=== PATIENT | female | born 1955 | race Caucasian/White ===

== ENCOUNTER 2022-11-28 12:39 | Inpatient (IN) | payer MEDICARE, SELFPAY ==
[2022-11-28] VITALS (13 sets, daily range): BP systolic 99–131; BP diastolic 51–74; PULSE 74–90; RESP 14–18; TEMP 36.5–37; O2SAT 97–100; BMI 20.5; BMI 19.3
--- NOTE | 2022-11-28 13:05 | EKG12_ITS ---
Test Reason : SYNCOPE Blood Pressure : / mmHG Vent. Rate : 082 BPM Atrial Rate : 082 BPM P-R Int : 170 ms QRS Dur : 080 ms QT Int : 380 ms P-R-T Axes : 072 057 203 degrees QTc Int : 443 ms Normal sinus rhythm Possible Left atrial enlargement Left ventricular hypertrophy with repolarization abnormality ( Sokolow-Goodson ) Abnormal ECG Confirmed by GABRIELA HERNANDEZ, AYLIN ([id number]), art editor JOANIE NIELSEN ([id number]) on 12/02/2022 11:44:48 AM Referred By: RAFAEL Confirmed By:AYLIN OCHOA MD
--- NOTE | 2022-11-28 13:07 | EDS_ITS ---
HPI History of Present Illness Chief Complaint: Fall Narrative Narrative: 67-year-old female who denies significant past medical history, states she has not seen a primary care physician in quite some time, presents with what sounds like a syncopal episode for 5 to 10 seconds. She relates history that she had parked where she usually parked, but then went into the building for a meeting. She felt short of breath, and had a syncopal episode. It was reported by EMS that she was diaphoretic, but she denies any prodromal chest pain. She does state that when she exerts herself over the past few years, she becomes very short of breath, especially when she goes walking with her relatives. She thinks that they go too fast and she has of being very short of breath. She does not have a good exercise tolerance. She denies any leg swelling or any other symptoms. PFSH PFSH Medical History no medical history Home Medications NK 11/28/22 [History Last Taken Unknown] Allergy/AdvReac Type Severity Reaction Status Date / Time No Known Allergies Allergy Verified 11/28/22 12:45 Surgical History H/O hand surgery Hx of appendectomy Social History Smoking Status: Never smoker ROS ROS ED ROS Narrative Constitutional: No fever, no chills. HEENT: No sore throat. No neck pain. No loss of vision. No rhinorrhea. Cardiovascular: No chest pain. No palpitations. No pedal edema. Respiratory: No cough, positive shortness of breath. Abdominal: No abdominal pain. No nausea. No vomiting. Genitourinary: No dysuria. No hematuria. Musculoskeletal: No myalgias. No arthralgias. Neurologic: No headaches. No dizziness. No lightheadedness. Reported syncope. Skin: No rash. No change in color. Psychiatric: No depression. No anxiety. EXAM Physical Exam Narrative Exam Narrative: Afebrile. Vital signs noted. HEENT: Normocephalic. Atraumatic. PERRL, EOMI. Neck soft and supple. No point tenderness or step off. Cardiovascular: Regular rate and rhythm. Positive holosystolic murmur. Rubs, or gallops appreciated. Respiratory: No tachypnea. Lungs clear to auscultation bilaterally. Gastrointestinal: Abdomen soft, nontender, with normoactive bowel sounds. No rebound or guarding. Neurological: Awake. Alert. Nonfocal, nonlateralizing. Skin: No rash. Normal color. No pallor. Musculoskeletal: No pedal edema. Full range of motion extremities. Const Vital Signs: 11/28/22 12:41 11/28/22 12:47 11/28/22 12:48 Temperature 97.9 F Temperature Source Temporal Pulse Rate 87 84 Respiratory Rate 18 16 Respiratory Effort Normal Non-Labored Blood Pressure 99/51 L 108/57 L Blood Pressure Mean 67 74 Pulse Ox 100 99 99 Oxygen Delivery Method Room Air Room Air Room Air 11/28/22 13:16 11/28/22 13:27 11/28/22 13:56 Temperature Temperature Source Pulse Rate 79 83 Respiratory Rate 16 14 Respiratory Effort Blood Pressure 125/54 H 126/59 H Blood Pressure Mean 77 81 Pulse Ox 100 100 99 Oxygen Delivery Method Room Air Room Air Room Air MDM MDM MDM Narrative Medical decision making narrative: Comprehensive work-up was pursued. Based on her history and physical with her holosystolic murmur, I have high suspicion for critical aortic stenosis. EKG was obtained and interpreted by myself as normal sinus rhythm at 82 bpm without ectopy or acute ST changes. She does have mild ST elevation noted in leads V1 and V2 but she does have left ventricular hypertrophy by voltage. She does have mild ST depression in V3 through V6 and laterally. I will obtain a troponin and basic laboratory work including chest x-ray, however regardless of these results I do feel that she would require at least observation for echocardiogram as she was symptomatic with a syncopal episode today. I reviewed her laboratory work, she has a normal white count of 5.2, hemoglobin normal at 12.5, platelet count slightly thrombocytopenic at 137 which I think is nonspecific. There are no prior with which to compare. She has a glucose is appropriately elevated at 143 with a low anion gap of 4, I do not feel she is in a diabetic ketoacidosis. BUN elevated at 22 with normal creatinine of 0.85. She has normal renal function. Her blood pressure is currently 126/59 and improved. Of note, her troponin is elevated at 135. I do feel this is more reason for her to be admitted to the hospital. I discussed patient with Dr. Griffith who will admit her to the PCU. She was given 4 baby aspirin to take given her elevated troponin. He requested that I discussed the patient with Dr. Chadwick to let him know of the patient's admission. Disposition is admit in stable condition. History & Record Review Discussion w/independent historian: Patient Additional record(s) reviewed:: No prior records Lab Data Attestation: I reviewed the patient's lab results. Labs: Laboratory Results - last 24 hr 11/28/22 11/28/22 13:00 13:00 WBC 5.2 RBC 4.19 L Hgb 12.5 Hct 38.5 MCV 91.9 MCH 29.8 MCHC 32.5 RDW Std Deviation 42.7 RDW Coeff of Mik 12.8 Plt Count 137 L MPV 12.9 H Immature Gran % (Auto) 0.200 Neut % (Auto) 60.6 Lymph % (Auto) 26.2 [place] % (Auto) 10.5 H Eos % (Auto) 1.9 Baso % (Auto) 0.6 Absolute Neuts (auto) 3.2 Absolute Lymphs (auto) 1.37 Nucleated RBC % 0 Sodium 139 Potassium 3.7 Chloride 107 Carbon Dioxide 28.0 Anion Gap 4 L BUN 22 H Creatinine 0.85 Estim Creat Clear Calc 57.45 Est GFR (MDRD) Af Amer 86 Est GFR (MDRD) Non-Af 71 BUN/Creatinine Ratio 25.9 H Glucose 143 H Calcium 8.5 Troponin I High Sens 135 H* Radiography Diagnostic Testing: Clinical Impression(s) from Imaging Studies Chest X-Ray 11/28/22 13:30 IMPRESSION: Hyperinflation. The lungs are clear. Electronically Signed: True Rodríguez MD at 13:53 EDT , Discharge Plan Dx/Rx/DC Orders Clinical Impression: Syncope, Elevated troponin, Aortic stenosis, SOB (shortness of breath) Disposition Disposition: Acute Care [facility]
[2022-11-28 13:16] LABS: Absolute Lymphocyte Count 1.37 X10^3/uL (0.83-4.51); Absolute Neutrophil Count 3.2 X10^3/uL (2.0-7.7); Basophil# 0.03 X10^3/uL; Basophil% 0.6 % (0-1); Eosinophils% 1.9 % (0-5); Hematocrit 38.5 % (37-47); Hemoglobin 12.5 g/dL (12.0-15.0); Lymphocyte # 1.37 X10^3/ul (0.83-4.51); Lymphocyte % 26.2 % (19-41); Mean Corp Hgb Conc 32.5 g/dL (32-36); Mean Corpuscular Hgb 29.8 pg (27.0-32.0); Mean Corpuscular Volume 91.9 fL (81-99); Mean Platelet Vol. 12.9 fl (6.2-12.0); Monocyte# 0.55 X10^3/uL; Monocyte% 10.5 % (0-10); NRBC Flagged by Analyzer 0 % (0-5); Neutrophil # 3.17 X10^3/uL (2.7-7.7); Neutrophil % 60.6 % (47-70); Platelet Count 137 K/mm3 (150-450); RBC Distribution Width CV 12.8 % (11.6-14.6); RBC Distribution Width SD 42.7 fl (35.1-43.9); Red Blood Count 4.19 M/mm3 (4.2-5.4); White Blood Count 5.2 K/mm3 (4.4-11.0)
--- NOTE | 2022-11-28 13:30 | RAD_ITS ---
STUDY: X-RAY CHEST REASON FOR EXAM: Female, 67 years old. Chest pain TECHNIQUE: Single AP portable view of the chest. COMPARISON: None. FINDINGS: EKG electrodes are seen. Hyperinflation. The lungs are clear. There is no demonstrated pleural abnormality. Normal size heart. Normal mediastinum and galo. Normal visualized pulmonary arteries. Normal visualized aortic arch and descending thoracic aorta. Normal visualized thoracic spine. Normal visualized ribs, clavicles, and shoulders. There is no demonstrated abnormality of the visualized soft tissue structures of the upper abdomen. RAD/Chest 1 View (Portable) IMPRESSION: Hyperinflation. The lungs are clear. Electronically Signed: True Rodríguez MD at 13:53 EDT ,
[2022-11-28 13:37] LABS: Anion Gap 4 (5-15); BUN 22 mg/dL (7-18); BUN/Creat Ratio 25.9 RATIO (10-20); Calcium,Total 8.5 mg/dL (8.5-10.1); Chloride 107 mmol/L (98-107); Creatinine, Serum 0.85 mg/dL (0.55-1.02); EST Glomerular Filtration Rate 71 mL/min (>60); Est Glom Filt Rate - Afr Amer 86 mL/min (>60); Estimated Creatinine Clearance 57.45 ml/min; Glucose 143 mg/dL (74-106); Potassium 3.7 mmol/L (3.5-5.1); Sodium Level 139 mmol/L (136-145); Troponin-I HS (w/2H Reflex) 135 pg/mL (3.0-54.0)
[2022-11-28] MEDS: Aspirin 81 MG TAB.CHEW 324 MG PO (13:55)
[2022-11-28] MEDS: 0.9% Normal Saline 1,000 ML 999 ML IV (14:00)
--- NOTE | 2022-11-28 14:37 | CM.ED ---
Social Work Note REKHA Face to Face with patient for initial transition planning/care coordination assessment. SW introduced self and role at [facility]. Patient lying in bed, alert and oriented. Patient willing to participate in assessment and is able to answer all questions appropriately.? Care providers, pharmacy, and demographics verified. Patient wishes to discharge home, denies need for home health at this time.? Patient states she has no further needs or concerns at this time. CM/SW to follow for discharge planning needs that may arise. PCP: Patient reports she was assigned Mary Montoya as her PCP by Medicare but has never met with her. Patient explained she is very healthy and doesn't receive medical services often. Specialists: none reported Preferred Pharmacy: Patient reports she doesn't use one nor is familiar with any. Patient is open to using [facility] pharmacy for prescriptions to be filled prior to discharge, if needed. Insurance: [facility] Medicare Prescription Benefit:?Patient unsure but assumes she has prescription benefits, explaining she has never needed to use those benefits. Living Will/HPOA: Patient does not have completed AD but is interested in completing them, explaining she would want her twin sister, Imelda, as her primary agent and her brother, Max, secondary. Patient's phone is currently and patient reports she keeps phone numbers on her tablet which is in her car. SW provided patient with information on AD as well as Instructor Psychiatric Aide rack card to schedule an appointment to complete AD when able. LNOK: Patient's twin sister Imelda Gandhi and brother Max Crain. Patient does not know either phone numbers. Living Arrangements: Patient lives with her sister, Yessy, in a ranch style home that was willed to Yessy from their parents. Patient reports her sister Yessy is a slow learner so the patient assists her with DLS although she is independent with some tasks. Patient reports there are some steps into the house. Transportation: Patient drives herself and voices no concerns regarding transportation. DME/HHC: Patient reports no DME or HHC services as she has been independent and healthy for years. Disposition Plan: home, no needs unless care team has other recommendations. Karina INTERIANO, JACKY
--- NOTE | 2022-11-28 14:41 | HP.PCM.HOS_ITS ---
HPI - General General Date of Admission: 11/28/22 Date of Service: 11/28/22 Chief Complaint: Syncope passed out. HPI Narrative MADELYN SPENCE, is a 67 F who was brought to ED by EMS after she passed out probably about 5 to 10 seconds. She stated that while she was walking into the building ultraparking the car, suddenly she passed out and does not know anything afterwards. She was mild short of breath on walking. She denies any prodromal symptoms including chest pain pressure tightness but as per EMS he was diaphoretic. She does not know her history in detail and does not see any PCP and not on any medications. She further said she gets short of breath on walking probably about 1 block but not sure about climbing stairs. She does usual house chores without difficulty or shortness of breath. She denies any prior history of any medical problems including heart disease lung disease stroke or peripheral arterial disease. She denies any prior syncope. Social history: Denies history of smoking substance use or alcohol use. She lives with her sister and is single. Family history: Her brother has cardiac stents. Her father had a stroke. In ED, twelve-lead EKG shows sinus rhythm at 82 bpm with LVH with repolarization abnormality and LAE. QTc 443 ms. No prior EKG or labs to compare. EKG suggestive of uncontrolled hypertension but she states her pressure has been low in the past. She does not know the exact number probably around 90s at 100s. In ED, BP 99/51, went up 126/59 with IV fluid restriction but last 1 was sy stolic 88. Patient not feeling dizzy or lightheaded. First troponin elevated in edition consulted automation engineering technician. [facility] Medical History no medical history Home Medications NK 11/28/22 [History Last Taken Unknown] Allergy/AdvReac Type Severity Reaction Status Date / Time No Known Allergies Allergy Verified 11/28/22 12:45 Surgical History H/O hand surgery Hx of appendectomy Social History Smoking Status: Never smoker ROS ROS Narrative Constitutional: Denies fatigue or fever. No recent URI or flulike symptoms. HEENT: Reports systems reviewed and no addt'l complaints, except as documented Respiratory/Chest: Denies chest pain, shortness of breath at rest. CVS: Dyspnea on moderate to severe exertion. No prior chest pain/NE. Does not know about murmur. Gastrointestinal: Denies coffee ground emesis, hematemesis or vomiting Genitourinary: Denies burning urination or new urinary tract symptoms Musculoskeletal: Denies joint pain and limited range of motion Neurologic: Denies seizure-like activity. No prior stroke. skin: No ulcer. No rash Endocrinology: Reports systems reviewed and no addt'l complaints, except as documented Hematologic/Lymphatic: Reports systems reviewed and no addt'l complaints, except as documented Rest 14 ROS are negative except as mentioned in HPI Vital Signs Vital Signs Vital Signs: 11/28/22 12:41 11/28/22 12:47 11/28/22 12:48 Temperature 97.9 F Temperature Source Temporal Pulse Rate 87 84 Respiratory Rate 18 16 Respiratory Effort Normal Non-Labored Blood Pressure 99/51 L 108/57 L Blood Pressure Mean 67 74 Pulse Ox 100 99 99 Oxygen Delivery Method Room Air Room Air Room Air 11/28/22 13:16 11/28/22 13:27 11/28/22 13:56 Temperature Temperature Source Pulse Rate 79 83 Respiratory Rate 16 14 Respiratory Effort Blood Pressure 125/54 H 126/59 H Blood Pressure Mean 77 81 Pulse Ox 100 100 99 Oxygen Delivery Method Room Air Room Air Room Air 11/28/22 14:32 Temperature 97.9 F Temperature Source Temporal Pulse Rate 82 Respiratory Rate 18 Respiratory Effort Blood Pressure 131/68 H Blood Pressure Mean 89 Pulse Ox 97 Oxygen Delivery Method Room Air Weight Weight: 123 lb 3.814 oz Body Mass Index (BMI) 20.5 Physical Exam Narrative General: Alert, Oriented x3, Cooperative HEENT: Atraumatic, PERRLA, EOMI, Normocephalic Oral: Oral mucosa dry. No Gingival or Mucosal Lesions/ Ulcerations Neck: Supple, No JVD, Negative Carotid Bruits Lungs: Air entry diminished in bilateral lung bases. No crepitation/rhonchi/wheezing. No dyspnea at rest. No hypoxia Cardiovascular: Regular rate, Regular Rhythm, Normal S1, Normal S2, grade 5/6 ejection systolic murmur over right second ICS with radiation to carotids and whole precordium and back. Abdomen: Bowel Sounds Present, Soft, Non Tender, Non-Distended : No renal angle tenderness. No suprapubic tenderness. Extremities: No edema, Capillary Refill Less than 3 Seconds Skin: No rashes, No breakdown Musculoskeletal: No Tenderness to Palpation of Joints or Extremities. Muscle strength 5/5 at major joints. ROM intact. Neurological: Cranial nerves II-XII grossly intact, DTR 2+/4 and Symmetrical, Neuro grossly intact Psych/Mental Status: Normal Affect, Appropriate. Results Lab / Micro Data Result Diagrams: 11/28/22 13:00 11/28/22 13:00 Labs: Laboratory Results - last 24 hr 11/28/22 13:00: WBC 5.2, RBC 4.19 L, Hgb 12.5, Hct 38.5, MCV 91.9, MCH 29.8, MCHC 32.5, RDW Std Deviation 42.7, RDW Coeff of Mik 12.8, Plt Count 137 L, MPV 12.9 H, Immature Gran % (Auto) 0.200, Neut % (Auto) 60.6, Lymph % (Auto) 26.2, [place] % (Auto) 10.5 H, Eos % (Auto) 1.9, Baso % (Auto) 0.6, Absolute Neuts (auto) 3.2, Absolute Lymphs (auto) 1.37, Nucleated RBC % 0 11/28/22 13:00: Sodium 139, Potassium 3.7, Chloride 107, Carbon Dioxide 28.0, Anion Gap 4 L, BUN 22 H, Creatinine 0.85, Estim Creat Clear Calc 57.45, Est GFR (MDRD) Af Amer 86, Est GFR (MDRD) Non-Af 71, BUN/Creatinine Ratio 25.9 H, Glucose 143 H, Calcium 8.5, Troponin I High Sens 135 H* Radiology Impression Chest X-Ray 11/28/22 13:30 IMPRESSION: Hyperinflation. The lungs are clear. Electronically Signed: True Rodríguez MD at 13:53 EDT , Assessment & Plan Assessment/Plan (1) Syncope: (2) Aortic stenosis: PLAN: Plan This is 67-year-old female is being admitted for evaluation of syncope and aortic stenosis. 1. Syncope most likely cardiac in etiology due to severe aortic stenosis: Patient is being admitted in PCU. Orthostatic blood pressure when she is fully resuscitation and BP is more than 110 mmHg. 2D echo is ordered. History is not suggestive of seizure or convulsions and syncope was brief. 2. Chronic dyspnea on exertion, troponin elevation and severe aortic stenosis: Patient does not know about her cardiac murmur. First troponin is 135. Twelve- lead EKG slight ST elevation in V1 V2 and T wave inversions in lateral leads, most likely due to LVH with repolarization abnormality. Serial troponin and EKG ordered. Network Design Architect is consulted. Further management guided by troponin elevation, and echo finding. Her blood pressure is low therefore I would not start beta-cruz or MILA inhibitor but monitor closely. TSH and fasting lipid profile for tomorrow a.m. 3. Chronic low blood pressure with EKG changes of LVH with repolarization abnormality: This does not go usually together but patient might have uncontrolled hypertension in the past which recently might have gotten low due to severe aortic stenosis or heart failure. BNP is ordered. Patient does not have leg swelling or findings of pulmonary edema. Chest x-ray initially reviewed shows hyperinflation but lungs clear. IV fluid normal saline 1 L bolus and then Ringer lactate 100 mill per hour ordered. Patient does not go to PCU and therefore no prior record, labs or clinical evaluation. 4. Mild hyperglycemia and mild thrombocytopenia: Patient glucose is 143. A1c ordered for tomorrow AM. Platelet count 837,000. Monitor labs. Living will/advanced directive/end of life care: Patient does not have living will or advanced directive. After discussion of benefits/risks procedures involved with full code, DNR CC arrest and DNR CC, the patient opted for DNRCC arrest with no intubation Patient doesn't want artificial life support including intubation, tube feed, ventilator and/chest compression, central venous catheter, vasopressor and DC shock if needed Total time spent in [id number] encounter in discussion of advanced directive 17 minutes. Laboratory Results 11/28/22 13:00: WBC 5.2, RBC 4.19 L, Hgb 12.5, Hct 38.5, MCV 91.9, MCH 29.8, MCHC 32.5, RDW Std Deviation 42.7, RDW Coeff of Mik 12.8, Plt Count 137 L, MPV 12.9 H, Immature Gran % (Auto) 0.200, Neut % (Auto) 60.6, Lymph % (Auto) 26.2, [place] % (Auto) 10.5 H, Eos % (Auto) 1.9, Baso % (Auto) 0.6, Absolute Neuts (auto) 3.2, Absolute Lymphs (auto) 1.37, Nucleated RBC % 0 11/28/22 13:00: Sodium 139, Potassium 3.7, Chloride 107, Carbon Dioxide 28.0, Anion Gap 4 L, BUN 22 H, Creatinine 0.85, Estim Creat Clear Calc 57.45, Est GFR (MDRD) Af Amer 86, Est GFR (MDRD) Non-Af 71, BUN/Creatinine Ratio 25.9 H, Gl ucose 143 H, Calcium 8.5, Troponin I High Sens 135 H* Clinical Impression(s) from Imaging Studies Chest X-Ray 11/28/22 13:30 IMPRESSION: Hyperinflation. The lungs are clear. Electronically Signed: True Rodríguez MD at 13:53 EDT , Charges/Coding Visit Charges Inpatient E&M: 09633 Init Hosp L3 Procedures Hospitalists Procedures: 09687 Advncd Care Plan 30 Min
[2022-11-28 15:10] LABS: BNP,B-Type NATRIURETIC PEPTIDE 379.6 pg/mL (0-100)
[2022-11-28 15:11] LABS: Reflex Troponin-HS? (from REC) Y
[2022-11-28 15:53] LABS: Troponin-I HS 148 pg/mL (3.0-54.0)
--- NOTE | 2022-11-28 16:45 | ECHOCS_ITS ---
Reason For Study: Syncope Procedure This was a 2D Doppler, Color Flow transthoracic echocardiogram. The study was technically difficult. Contrast injection was performed. Exam performed portable in patient room. Left Ventricle Normal left ventricle. The estimated ejection fraction is 55-60 %. Right Ventricle Normal right ventricle. Normal systolic function. Atria Normal left atrium. Normal right atrium. Bubble contrast study is negative for PFO/ASD. Mitral Valve The mitral valve is structurally normal. No prolapse or stenosis seen. Mild (1+) mitral valve insufficiency. Tricuspid Valve Normal tricuspid valve. Aortic Valve Severe diffuse aortic valve calcification. Critical aortic stenosis. Peak aortic valve gradient 167.6 mmhg mmHg. Mean aortic valve gradient 97.9 mmhg mmHg. Calculated aortic valve area (continuity equation) is 0.38 cm2 cm2. Pulmonic Valve The pulmonic valve is not well visualized. Great Vessels Calcified aortic root. Severely calcified aortic root. Pericardium/Pleural No pericardial effusion. Medication Diluted definity 2ml given slow IV push to enhance endocardial definition. Performed a rapid injection of agitated mix of 9 cc saline and 1cc air to assess for atrial septal defect. MMode/2D Measurements & Calculations LVIDd: 4.3 cm IVSd: 1.4 cm LVOT diam: 1.9 cm LVIDs: 3.0 cm LVPWd: 1.1 cm RVDd: 3.3 cm FS: 30.2 % LVOT area: 3.0 cm2 Ao root diam: 3.1 cm LAV(MOD-bp): 57.7 ml LA A4 area: 20.3 cm2 LA dimension: 3.4 cm LAV(MOD-bp) Indexed: 36.7 ml/m2 LAV(MOD-sp2): 51.3 ml LAV(MOD-sp4): 55.3 ml RA A4 area: 13.5 cm2 Time Measurements MV dec time: 0.15 sec Doppler Measurements & Calculations MV E max ben: 129.5 cm/sec Lat Peak E' Ben: 5.9 cm/sec Med Peak E' Ben: 5.5 cm/sec MV A max ben: 97.0 cm/sec E/E' lat: 22.0 E/E' med: 23.6 MV E/A: 1.3 MV V2 max: 159.2 cm/sec MV P1/2t max ben: 159.2 cm/sec Ao V2 max: 647.1 cm/sec MV max P.1 mmHg MV P1/2t: 56.7 msec Ao max P.6 mmHg MV V2 mean: 69.5 cm/sec MV dec slope: 821.9 cm/sec2 Ao V2 mean: 464.3 cm/sec MV mean P.5 mmHg Ao mean P.9 mmHg MV V2 VTI: 37.6 cm MVA(P1/2t): 3.9 cm2 Ao V2 VTI: 173.1 cm MVA(VTI): 1.9 cm2 AV (velocity ratio): 0.14 FARHAT(I,D): 0.41 cm2 FARHAT(V,D): 0.38 cm2 LV V1 max: 81.9 cm/sec SV(LVOT): 71.0 ml PA V2 max: 70.7 cm/sec LV V1 max P.7 mmHg LV V1 mean P.6 mmHg LV V1 mean: 59.1 cm/sec LV V1 VTI: 23.9 cm TR max ben: 314.4 cm/sec TR max P.5 mmHg ECHO/Echo Complete W/ Contrast Interpretation Summary The estimated ejection fraction is 55-60 %. Peak aortic valve gradient 167.6 mmhg mmHg. Mean aortic valve gradient 97.9 mmhg mmHg. Calculated aortic valve area (continuity equation) is 0.38 cm2 cm2. Critical Calcific AV stenosis No prior study to compare contrast echo and Buble study used Ordering Physician: Chencho Griffith Performed By: Bolivar Ernst RCS
[2022-11-28] MEDS: Enoxaparin 40 MG/0.4 ML Syringe SC (17:42)
[2022-11-28] MEDS: Lactated Ringers 1,000 ML 100 ML IV (17:43)
--- NOTE | 2022-11-28 18:56 | EKG12_ITS ---
Test Reason : AM EKG Blood Pressure : / mmHG Vent. Rate : 070 BPM Atrial Rate : 070 BPM P-R Int : 174 ms QRS Dur : 082 ms QT Int : 394 ms P-R-T Axes : 073 058 213 degrees QTc Int : 425 ms Normal sinus rhythm Left ventricular hypertrophy with repolarization abnormality ( Sokolow-Goodson ) Abnormal ECG When compared with ECG of 28-NOV-2022 19:07, MANUAL COMPARISON REQUIRED, DATA IS UNCONFIRMED Confirmed by GABRIELA HERNANDEZ, AYLIN ([id number]), acquisition editor JOANIE NIELSEN ([id number]) on 12/03/2022 10:34:13 AM Referred By: Confirmed By:AYLIN OCHOA MD
--- NOTE | 2022-11-28 19:17 | CON.PCM.CA_ITS ---
Assessment & Plan Assessment/Plan (1) SOB (shortness of breath): (2) Thrombocytopenia: (3) Elevated troponin: (4) Syncope: PLAN: Plan 67-year-old patient admitted through the ER She has episode of syncope passed out while at work Denied symptoms of chest pain no prior episodes of syncope She had no associated symptoms shortness of breath. 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 Repeat EKG 3. Will assess further with cardiac catheterization tomorrow right radial artery approach as she has elevated cardiac biomarkers with syncopal episode to assess for CAD. HPI Consult Data Date of Consult: 11/28/22 HPI Narrative Reason for Consultation: Syncope with heart murmur HPI Narrative: MADELYN SPENCE, is a 67 F who presents [facility] Medical History Migraines Medical History no medical history Home Medications NK 11/28/22 [History Last Taken Unknown] Allergy/AdvReac Type Severity Reaction Status Date / Time No Known Allergies Allergy Verified 11/28/22 12:45 Surgical History H/O hand surgery Hx of appendectomy Social History Smoking Status: Never smoker ROS ROS Narrative 14 point review of system is unremarkable apart from current presentation of syncope Physical Exam Cardio Cardio Narrative: Review of cardiac rhythm is normal sinus/cardiac telemetry Cardiac exam S1-S2 regular Systolic murmur heard in the aortic valve area in addition to mid diastolic murmur Chest exam clear to auscultation bilateral Examination lower extremity no clubbing no cyanosis no lower extremity edema Risk Stratification Risk Stratification Applicable: Yes Age >/= 65: Yes >/= 3 CAD Risk Factors (HTN, HLD, DM, family hx of CAD, or current smoker): No Aspirin Use in the Past 7 Days: No Severe Angina (>/= episodes in 24 hours): No EKG ST Changes >/= 0.5mm: No Positive Cardiac Marker: Yes EVAN Risk Stratification Score: 2 EVAN % Risk: 8% Risk Objective Data Vital Signs: Vital Signs Temp Pulse Resp BP Pulse Ox O2 Del Method 97.7 F L 79 18 116/62 99 Room Air 11/28/22 16:00 11/28/22 17:49 11/28/22 16:00 11/28/22 17:49 11/28/22 18:21 11/28/22 18:21 Oxygen Delivery Method Room Air Weight: 116 lb 5 oz Body Mass Index (BMI) 19.3 Intake & Output: Intake and Output for Last 24 Hours 11/26/22 11/27/22 11/28/22 23:59 23:59 23:59 Intake Total 1240 / 1240 Balance 1240 / 1240 Lab / Micro Data Result Diagrams: 11/28/22 13:00 11/28/22 13:00 Labs: Laboratory Results - last 24 hr 11/28/22 13:00: WBC 5.2, RBC 4.19 L, Hgb 12.5, Hct 38.5, MCV 91.9, MCH 29.8, MCHC 32.5, RDW Std Deviation 42.7, RDW Coeff of Mik 12.8, Plt Count 137 L, MPV 12.9 H, Immature Gran % (Auto) 0.200, Neut % (Auto) 60.6, Lymph % (Auto) 26.2, [place] % (Auto) 10.5 H, Eos % (Auto) 1.9, Baso % (Auto) 0.6, Absolute Neuts (auto) 3.2, Absolute Lymphs (auto) 1.37, Nucleated RBC % 0 11/28/22 13:00: Sodium 139, Potassium 3.7, Chloride 107, Carbon Dioxide 28.0, Anion Gap 4 L, BUN 22 H, Creatinine 0.85, Estim Creat Clear Calc 57.45, Est GFR (MDRD) Af Amer 86, Est GFR (MDRD) Non-Af 71, BUN/Creatinine Ratio 25.9 H, Glucose 143 H, Calcium 8.5, Troponin I High Sens 135 H* 11/28/22 13:00: Magnesium 2.0 11/28/22 13:00: B-Natriuretic Peptide 379.6 H 11/28/22 15:20: Troponin I High Sens 148 H* Cardiology Labs/Tests 11/28/22 13:00: WBC 5.2, RBC 4.19 L, Hgb 12.5, Hct 38.5, MCV 91.9, MCH 29.8, MCHC 32.5, Plt Count 137 L, MPV 12.9 H, Immature Gran % (Auto) 0.200, Neut % (Auto) 60.6, Lymph % (Auto) 26.2, [place] % (Auto) 10.5 H, Eos % (Auto) 1.9, Baso % (Auto) 0.6, Absolute Neuts (auto) 3.2, Nucleated RBC % 0 11/28/22 13:00: Sodium 139, Potassium 3.7, Chloride 107, Carbon Dioxide 28.0, Anion Gap 4 L, BUN 22 H, Creatinine 0.85, Est GFR (MDRD) Af Amer 86, Est GFR (MDRD) Non-Af 71, BUN/Creatinine Ratio 25.9 H, Glucose 143 H, Calcium 8.5 11/28/22 13:00: Magnesium 2.0 11/28/22 13:00: B-Natriuretic Peptide 379.6 H Rhythm: EKG: ECHO: Stress Test: Cardiac Cath: PCI: CT Surgery: Holter monitor: EPS: PPM: CXR: Chest CT Scan: Radiography Diagnostic Testing: Radiology Impression Chest X-Ray 11/28/22 13:30 IMPRESSION: Hyperinflation. The lungs are clear. Electronically Signed: True Rodríguez MD at 13:53 EDT ,
[2022-11-28 19:58] LABS: Troponin-I HS 160 pg/mL (3.0-54.0)
[2022-11-29] VITALS (13 sets, daily range): BP systolic 88–130; BP diastolic 53–73; PULSE 65–98; RESP 16–18; TEMP 36.6–36.7; O2SAT 95–100; BMI 19.5
[2022-11-29 05:23] LABS: Absolute Lymphocyte Count 1.47 X10^3/uL (0.83-4.51); Absolute Neutrophil Count 3.5 X10^3/uL (2.0-7.7); Basophil# 0.04 X10^3/uL; Basophil% 0.7 % (0-1); Eosinophil# 0.07 X10^3/uL; Eosinophils% 1.3 % (0-5); Hematocrit 35.2 % (37-47); Hemoglobin 11.7 g/dL (12.0-15.0); Lymphocyte # 1.47 X10^3/ul (0.83-4.51); Lymphocyte % 26.5 % (19-41); Mean Corp Hgb Conc 33.2 g/dL (32-36); Mean Corpuscular Hgb 29.9 pg (27.0-32.0); Mean Platelet Vol. 12.6 fl (6.2-12.0); Monocyte# 0.51 X10^3/uL; Monocyte% 9.2 % (0-10); NRBC Flagged by Analyzer 0 % (0-5); Neutrophil # 3.45 X10^3/uL (2.7-7.7); Neutrophil % 62.1 % (47-70); Platelet Count 111 K/mm3 (150-450); RBC Distribution Width CV 12.8 % (11.6-14.6); RBC Distribution Width SD 41.7 fl (35.1-43.9); Red Blood Count 3.91 M/mm3 (4.2-5.4); White Blood Count 5.6 K/mm3 (4.4-11.0)
[2022-11-29] MEDS: Aspirin E.C. 81 MG Tablet PO (05:23)
--- NOTE | 2022-11-29 05:55 | EKG12_ITS ---
Test Reason : ROUTINE EKG Blood Pressure : / mmHG Vent. Rate : 074 BPM Atrial Rate : 074 BPM P-R Int : 170 ms QRS Dur : 084 ms QT Int : 394 ms P-R-T Axes : 069 051 212 degrees QTc Int : 437 ms Normal sinus rhythm Left ventricular hypertrophy with repolarization abnormality ( Sokolow-Goodson ) Abnormal ECG When compared with ECG of 28-NOV-2022 12:48, MANUAL COMPARISON REQUIRED, DATA IS UNCONFIRMED Confirmed by GABRIELA HERNANDEZ, AYLIN ([id number]), market editor JOANIE NIELSEN ([id number]) on 12/03/2022 10:37:46 AM Referred By: Confirmed By:AYLIN OCHOA MD
[2022-11-29 06:03] LABS: ALB/GLOB Ratio 1.2 RATIO (0.9-2.4); AST(SGOT) 14 U/L (15-37); Alanine Aminotransfer ALT/SGPT 17 U/L (13-56); Alkaline Phosphatase 54 U/L (45-117); Anion Gap 4 (5-15); BUN 15 mg/dL (7-18); BUN/Creat Ratio 29.1 RATIO (10-20); Calcium,Total 8.2 mg/dL (8.5-10.1); Chloride 111 mmol/L (98-107); Cholesterol 155 mg/dL (200); Creatinine, Serum 0.52 mg/dL (0.55-1.02); EST Glomerular Filtration Rate 126 mL/min (>60); Est Glom Filt Rate - Afr Amer 153 mL/min (>60); Estimated Creatinine Clearance 46.39 ml/min; Globulin 2.6 g/dL (2.2-4.2); Glucose 89 mg/dL (74-106); High Density Lipoprotein 59 mg/dL; Potassium 3.8 mmol/L (3.5-5.1); Protein, Total 5.6 g/dL (6.4-8.2); Sodium Level 139 mmol/L (136-145); Thyroid Stim Hormone (TSH) 1.58 uIU/mL (0.358-3.74); Triglycerides 57 mg/dL; Very Low Density Lipoprotein 11 mg/dL (5-40)
--- NOTE | 2022-11-29 10:41 | PN.HOSP_ITS ---
Reason for Visit Reason for Visit: Diagnoses Thrombocytopenia, unspecified (11/28/22) Nonrheumatic aortic (valve) stenosis (11/28/22) Shortness of breath (11/28/22) Syncope and collapse (11/28/22) Other specified abnormalities of plasma proteins (11/28/22) Objective Data Objective Data Vital Signs: Vital Signs Temp Pulse Resp BP Pulse Ox O2 Del Method 97.9 F 72 16 124/73 H 95 Room Air 11/29/22 03:55 11/29/22 03:55 11/29/22 03:55 11/29/22 03:55 11/29/22 07:45 11/29/22 07:45 Oxygen Delivery Method Room Air Weight: 117 lb 1.047 oz Body Mass Index (BMI) 19.5 Intake & Output: Intake and Output for Last 24 Hours 11/27/22 11/28/22 11/29/22 23:59 23:59 23:59 Intake Total 1240 / 1240 1000 / 1000 Balance 1240 / 1240 1000 / 1000 Lab / Micro Data Result Diagrams: 11/29/22 04:21 11/29/22 04:21 Labs: Laboratory Results - last 24 hr 11/28/22 06:55: Troponin I High Sens 160 H* 11/28/22 13:00: WBC 5.2, RBC 4.19 L, Hgb 12.5, Hct 38.5, MCV 91.9, MCH 29.8, MCHC 32.5, RDW Std Deviation 42.7, RDW Coeff of Mik 12.8, Plt Count 137 L, MPV 12.9 H, Immature Gran % (Auto) 0.200, Neut % (Auto) 60.6, Lymph % (Auto) 26.2, [place] % (Auto) 10.5 H, Eos % (Auto) 1.9, Baso % (Auto) 0.6, Absolute Neuts (auto) 3.2, Absolute Lymphs (auto) 1.37, Nucleated RBC % 0 11/28/22 13:00: Sodium 139, Potassium 3.7, Chloride 107, Carbon Dioxide 28.0, Anion Gap 4 L, BUN 22 H, Creatinine 0.85, Estim Creat Clear Calc 57.45, Est GFR (MDRD) Af Amer 86, Est GFR (MDRD) Non-Af 71, BUN/Creatinine Ratio 25.9 H, Glucose 143 H, Calcium 8.5, Troponin I High Sens 135 H* 11/28/22 13:00: Magnesium 2.0 11/28/22 13:00: B-Natriuretic Peptide 379.6 H 11/28/22 15:20: Troponin I High Sens 148 H* 11/29/22 04:21: WBC 5.6, RBC 3.91 L, Hgb 11.7 L, Hct 35.2 L, MCV 90.0, MCH 29.9, MCHC 33.2, RDW Std Deviation 41.7, RDW Coeff of Mik 12.8, Plt Count 111 L, MPV 12.6 H, Immature Gran % (Auto) 0.200, Neut % (Auto) 62.1, Lymph % (Auto) 26.5, [place] % (Auto) 9.2, Eos % (Auto) 1.3, Baso % (Auto) 0.7, Absolute Neuts (auto) 3.5, Absolute Lymphs (auto) 1.47, Nucleated RBC % 0 11/29/22 04:21: Sodium 139, Potassium 3.8, Chloride 111 H, Carbon Dioxide 24.0, Anion Gap 4 L, BUN 15, Creatinine 0.52 L, Estim Creat Clear Calc 46.39, Est GFR (MDRD) Af Amer 153, Est GFR (MDRD) Non-Af 126, BUN/Creatinine Ratio 29.1 H, Glucose 89, Calcium 8.2 L, Total Bilirubin 0.50, AST 14 L, ALT 17, Alkaline Phos phatase 54, Total Protein 5.6 L, Albumin 3.0 L, Globulin 2.6, Albumin/Globulin Ratio 1.2, Triglycerides 57, Cholesterol 155, LDL Cholesterol 85, VLDL Chol esterol 11, HDL Cholesterol 59, TSH 1.58 Radiography Diagnostic Testing: Radiology Impression Chest X-Ray 11/28/22 13:30 IMPRESSION: Hyperinflation. The lungs are clear. Electronically Signed: True Rodríguez MD at 13:53 EDT , Echocardiogram 11/28/22 16:45 Interpretation Summary The estimated ejection fraction is 55-60 %. Peak aortic valve gradient 167.6 mmhg mmHg. Mean aortic valve gradient 97.9 mmhg mmHg. Calculated aortic valve area (continuity equation) is 0.38 cm2 cm2. Critical Calcific AV stenosis No prior study to compare contrast echo and Buble study used Ordering Physician: Chencho Griffith Performed By: Bolivar Ernst RCS Physical Exam Narrative General: Alert, Oriented x3, Cooperative HEENT: Atraumatic, PERRLA, EOMI, Normocephalic Oral: Oral mucosa dry. No Gingival or Mucosal Lesions/ Ulcerations Neck: Supple, No JVD, Negative Carotid Bruits Lungs: Air entry diminished in bilateral lung bases. No crepitation/rhonchi/wheezing. No dyspnea at rest. No hypoxia Cardiovascular: Regular rate, Regular Rhythm, Normal S1, Normal S2, grade 5/6 ejection systolic murmur over right second ICS with radiation to carotids and whole precordium and back. Abdomen: Bowel Sounds Present, Soft, Non Tender, Non-Distended : No renal angle tenderness. No suprapubic tenderness. Extremities: No edema, Capillary Refill Less than 3 Seconds Skin: No rashes, No breakdown Musculoskeletal: No Tenderness to Palpation of Joints or Extremities. Muscle strength 5/5 at major joints. ROM intact. Neurological: Cranial nerves II-XII grossly intact, DTR 2+/4 and Symmetrical, Neuro grossly intact Psych/Mental Status: Normal Affect, Appropriate. Assessment & Plan Assessment/Plan (1) Syncope: (2) Aortic stenosis: PLAN: Plan This is 67-year-old female is being admitted for evaluation of syncope and aor tic stenosis. 1. Syncope most likely cardiac in etiology due to severe aortic stenosis: Patient is being admitted in PCU. Orthostatic blood pressure when she is fully resuscitation and BP is more than 110 mmHg. 2D echo is ordered. History is not suggestive of seizure or convulsions and syncope was brief. 2. Chronic dyspnea on exertion, troponin elevation and severe aortic stenosis: Patient does not know about her cardiac murmur. First troponin is 135. Twelve- lead EKG slight ST elevation in V1 V2 and T wave inversions in lateral leads, most likely due to LVH with repolarization abnormality. Serial troponin and EKG ordered. Densitometrist is consulted. Further management guided by troponin elevation, and echo finding. Her blood pressure is low therefore I would not start beta-cruz or MILA inhibitor but monitor closely. TSH and fasting lipid profile for tomorrow a.m. 3. with EKG changes of LVH with repolarization abnormality: This does not go usually together but patient might have uncontrolled hypertension in the past which recently might have gotten low due to severe aortic stenosis. BNP is ordered. Patient does not have leg swelling or findings of pulmonary edema. Chest x-ray initially reviewed shows hyperinflation but lungs clear. IV fluid normal saline 1 L bolus and then Ringer lactate 100 mill per hour ordered. Patient does not have PCP and therefore no prior record, labs or clinical evaluation. 4. Mild hyperglycemia and mild thrombocytopenia: Patient glucose is 143. A1c ordered for tomorrow AM. Platelet count 837,000. Monitor labs. Living will/advanced directive/end of life care: Patient does not have living will or advanced directive. After discussion of benefits/risks procedures involved with full code, DNR CC arrest and DNR CC, the patient opted for DNRCC arrest with no intubation Patient doesn't want artificial life support including intubation, tube feed, ventilator and/chest compression, central venous catheter, vasopressor and DC shock if needed Total time spent in [id number] encounter in discussion of advanced dire ctive 17 minutes. Laboratory Results 11/28/22 13:00: WBC 5.2, RBC 4.19 L, Hgb 12.5, Hct 38.5, MCV 91.9, MCH 29.8, MCHC 32.5, RDW Std Deviation 42.7, RDW Coeff of Mik 12.8, Plt Count 137 L, MPV 12.9 H, Immature Gran % (Auto) 0.200, Neut % (Auto) 60.6, Lymph % (Auto) 26.2, [place] % (Auto) 10.5 H, Eos % (Auto) 1.9, Baso % (Auto) 0.6, Absolute Neuts (auto) 3.2, Absolute Lymphs (auto) 1.37, Nucleated RBC % 0 11/28/22 13:00: Sodium 139, Potassium 3.7, Chloride 107, Carbon Dioxide 28.0, Anion Gap 4 L, BUN 22 H, Creatinine 0.85, Estim Creat Clear Calc 57.45, Est GFR (MDRD) Af Amer 86, Est GFR (MDRD) Non-Af 71, BUN/Creatinine Ratio 25.9 H, Glucose 143 H, Calcium 8.5, Troponin I High Sens 135 H* Clinical Impression(s) from Imaging Studies Chest X-Ray 11/28/22 13:30 IMPRESSION: Hyperinflation. The lungs are clear. Clinical Impression(s) from Imaging Studies Chest X-Ray 11/28/22 13:30
--- NOTE | 2022-11-29 11:28 | PCM.OP.PRO ---
Procedure Report Date of Procedure: 11/29/22 Coronary angiography 1. Moderate sedation 2. Selective left coronary angiography 3. Selective right coronary angiography 4. Placement of TR band to close the right radial artery arteriotomy site. 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 Mild MR She does not have any symptoms of chest pain or shortness of breath presentation ,is syncope with collapse. Consent; Risk and benefit of procedure explained detail patient like to to proceed informed consent obtained. Access; Right radial artery approach Diagnostic catheter used 5 Ethiopian Sula catheter. Procedure in detail; Under fluoroscopic guidance we will proceed with 5 [place] Sula using Glidewire belkis Yi cannulated the left main without difficulty Following this catheter was used to cannulate the right coronary ostium and selective angiographic view of the RCA obtained. SVG is not used in this case as she has a critical aortic valve stenosis in addition to calcification of the ascending aorta and aortic root. No dilatation of the ascending aorta noted. Coronary angiography 1. Left main is normal angiographically bifurcating into LAD and left circumflex 2. Left anterior descending artery is a large vessel reaching all the way to the apex with prominent first diagonal and abundant septal branches Angiographically there is no significant atherosclerosis noted of the left anterior descending 2. Left circumflex artery moderate to large in size and normal angiographically 3. RCA large dominant and normal to graphically Conclusion recommendations; 67-year-old patient presented with syncope and collapse Patient has severe critical aortic valve stenosis with preserved LV function and normal coronary arteries 2. I discussed the case today with [facility] by the cardiovascular surgeon Dr.Maureen Camarillo Patient will be transferred to evaluate for aortic valve replacement SAVR versus HERNESTO. Deondre Chadwick MD,FAC,[facility]
--- NOTE | 2022-11-29 11:36 | STRESSREP ---
Stress Test Report Treadmill myocardial perfusion stress test. Indication; 57-year-old patient with history of hypertension, hyperlipidemia Presented with symptoms of chest pain to the ER, symptoms radiate to the jaw and between the shoulder blade Had a prior echocardiogram in [place] in 2006 as well as stress test. And has been on medical therapy. Based on his clinical presentation he was evaluated by treadmill sestamibi study. Stress protocol: This patient exercised according to standard Chente protocol for a total of 9 minutes achieving work level of METS maximum METS 10.4. Resting EKG demonstrates. Normal sinus rhythm. 0.4 mg of regadenoson was infused per usual protocol followed by rapid intravenous saline flush injection continuous EKG monitoring was performed. The maximum heart rate attained was 250 bpm which was 152% of maximum predicted heart . Stress EKG showed[, no significant change from the resting EKG, with maximum heart rate of 250 bpm. Artifacts were noted on the EKG Arrhythmia: No arrhythmia demonstrated Symptoms: Patient had no symptoms of chest pain, shortness of breath and ankle discomfort. Blood pressure at rest: 112/62 mmHg blood pressure at the end of stress: 220/72 mmHg Myocardial perfusion protocol. 15 mCi ]of Technetium 99m Sestamibi was injected at rest. [ 0.4 mg ]of Regadenoson was infused per usual protocol peak infusion 44 mCi ]of Technetium 99m sestamibi was injected. Stress images were obtained stress and rest images were reconstructed and compared in the short axis vertical and horizontal long axis. Gated images were also obtained Perfusion SPECT analysis: Review of the images demonstrate normal uptake of sestamibi at rest, post stress images demonstrate moderate reduced tracer uptake was noted in the inferior and the lateral myocardium With evidence of reversible myocardial ischemia, inferolateral. Gated SPECT analysis: The gated ejection fraction is 65%. Normal LV wall motion.. Conclusion: Abnormal treadmill sestamibi myocardial fusion study With inferolateral reversible myocardial ischemia Preserved LV systolic function. Correlate with the clinical presentation and consider cardiac catheterization if clinically warranted Deondre Chadwick MD,FACC,[facility]
--- NOTE | 2022-11-29 11:58 | DS.PCM_ITS ---
Providers Date of Admission: 11/28/22 Date of Discharge: 11/29/22 Primary Care Physician: Indira Primary Care Phys Consultations 11/28/22 16:45 Consult: Cardiology Routine Consulting Provider: Deondre Chadwick Reason for Consult: Syncope possible due to , Trop positive EMERGENT Consult: No MD Notified: Yes Date Notified: 11/28/22 Time Notified: 14:44 Method of Notification: ED Physician Initiated Reason For Visit: SYNCOPE WITH Diagnosis Discharge Diagnosis (1) Syncope: Status: Acute Code(s): R55 - Syncope and collapse (2) Aortic stenosis: Status: Acute Code(s): I35.0 - Nonrheumatic aortic (valve) stenosis Plan This is 67-year-old female is being admitted for evaluation of syncope and aortic stenosis. 1. Syncope most likely due to severe aortic stenosis: Patient is being admitted in PCU. Patient did not had chest pain or shortness of breath. 2D echo is ordere d. History is not suggestive of seizure or convulsions and syncope was brief. 11/29/2022: Critical aortic stenosis: 2D echo was done which shows severe diffuse aortic valve calcification, critical aortic stenosis valve area 0.38 cm?. Peak gradient 167.6 mmHg and mean AV gradient 97.9 mmHg gradient. EF is preserved 55 to 60% normal LV ventricle, normal RV and systolic function. Normal right and left atrium. Bubble study negative for PFO. Mild MR. Orthostatic vitals did not show significant change. Cardiac cath shows angiographically normal vessels but critical aortic stenosis. 2. Chronic dyspnea on exertion, troponin elevation most likely due to severe aortic stenosis: Patient does not know about her cardiac murmur. Serial troponins 160, 135 148 and. Twelve-lead EKG slight ST elevation in V1 V2 and T wave inversions in lateral leads, most likely due to LVH with repolarization abnormality. Serial troponin and EKG ordered. Sofa Inspector is consulted. Further management guided by troponin elevation, and echo finding. Her blood pressure is low therefore I would not start beta-cruz or MILA inhibitor but monitor closely. 11/29: TSH normal. Fasting lipid profile shows LDL 85 HDL 59 in normal range. Magnesium 2.0. Troponin less than shows myocardial injury from severe aortic stenosis. 3. EKG changes of LVH with repolarization abnormality: The patient had low blood pressure at the time of admission. Chest x-ray initially reviewed shows hyperinflation but lungs clear. IV fluid normal saline 1 L bolus and then Ringer lactate 100 mill per hour ordered. Patient does not have PCP and therefore no prior record, labs or clinical evaluation. 11/29: Blood pressure recovered. We will try to keep SBP 120-130 and avoid hypotension. BNP 379. Mildly elevated. 4. Mild hyperglycemia and mild thrombocytopenia: Patient glucose is 143. Plate let count 837,000. Monitor labs. 11/29:Glucose is 89. Patient does not have a history of diabetes mellitus. Will need A1c. Patient is being transferred to [facility]. Living will/advanced directive/end of life care: Patient does not have living will or advanced directive. After discussion of benefits/risks procedures involved with full code, DNR CC arrest and DNR CC, the patient opted for DNRCC arrest with no intubation Patient doesn't want artificial life support including intubation, tube feed, ventilator and/chest compression, central venous catheter, vasopressor and DC shock if needed Patient is being transferred to [facility] to be evaluated by cardiac surgeon for TAVR or SAVR. Transfer is being facilitated by character impersonator after I talked to the cardiac surgeon. Transfer papers and formalities done for Total time spent, exact 35 minutes on discharge meds reconciliation, examination, coordination of care with nurses and ancillary staff, review of imaging and blood test and discussion with the patient on follow-up instructions. Clinical Impression(s) from Imaging Studies Chest X-Ray 11/28/22 13:30 IMPRESSION: Hyperinflation. The lungs are clear. Clinical Impression(s) from Imaging Studies Chest X-Ray 11/28/22 13:30 IMPRESSION: Hyperinflation. The lungs are clear. Electronically Signed: True Rodríguez MD at 13:53 EDT , Echocardiogram 11/28/22 16:45 Interpretation Summary The estimated ejection fraction is 55-60 %. Peak aortic valve gradient 167.6 mmhg mmHg. Mean aortic valve gradient 97.9 mmhg mmHg. Calculated aortic valve area (continuity equation) is 0.38 cm2 cm2. Critical Calcific AV stenosis No prior study to compare contrast echo and Buble study used Medications at Discharge Home Medications NK 11/28/22 Physical Exam Narrative Seen and examined on the day of discharge. Patient has a right radial artery access site no hematoma. No pain. No chest pain or pressure overnight. Physical exam General: Alert, Oriented x3, Cooperative HEENT: Atraumatic, PERRLA, EOMI, Normocephalic Oral: Oral mucosa dry. No Gingival or Mucosal Lesions/ Ulcerations Neck: Supple, No JVD, Negative Carotid Bruits Lungs: Air entry diminished in bilateral lung bases. No crepita tion/rhonchi/wheezing. No dyspnea at rest. No hypoxia Cardiovascular: Regular rate, Regular Rhythm, Normal S1, Normal S2, grade 5/6 ejection systolic murmur over right second ICS with radiation to carotids and whole precordium and back. Abdomen: Bowel Sounds Present, Soft, Non Tender, Non-Distended : No renal angle tenderness. No suprapubic tenderness. Extremities: No edema, Capillary Refill Less than 3 Seconds Skin: Right radial artery access site is with wrist pain. No hematoma or bruise . No rashes Musculoskeletal: No Tenderness to Palpation of Joints or Extremities. Muscle strength 5/5 at major joints. ROM intact. Neurological: Cranial nerves II-XII grossly intact, DTR 2+/4 and Symmetrical, Neuro grossly intact Psych/Mental Status: Normal Affect, Appropriate. Weight / BMI Weight Weight: 117 lb 1.047 oz Body Mass Index (BMI) 19.5 ABG / Lab / Microbiology Data Result Diagrams: 11/29/22 04:21 11/29/22 04:21 Laboratory: Laboratory Results - last 24 hr 11/28/22 06:55: Troponin I High Sens 160 H* 11/28/22 13:00: WBC 5.2, RBC 4.19 L, Hgb 12.5, Hct 38.5, MCV 91.9, MCH 29.8, MCHC 32.5, RDW Std Deviation 42.7, RDW Coeff of Mik 12.8, Plt Count 137 L, MPV 12.9 H, Immature Gran % (Auto) 0.200, Neut % (Auto) 60.6, Lymph % (Auto) 26.2, [place] % (Auto) 10.5 H, Eos % (Auto) 1.9, Baso % (Auto) 0.6, Absolute Neuts (auto) 3.2, Absolute Lymphs (auto) 1.37, Nucleated RBC % 0 11/28/22 13:00: Sodium 139, Potassium 3.7, Chloride 107, Carbon Dioxide 28.0, Anion Gap 4 L, BUN 22 H, Creatinine 0.85, Estim Creat Clear Calc 57.45, Est GFR (MDRD) Af Amer 86, Est GFR (MDRD) Non-Af 71, BUN/Creatinine Ratio 25.9 H, Glucose 143 H, Calcium 8.5, Troponin I High Sens 135 H* 11/28/22 13:00: Magnesium 2.0 11/28/22 13:00: B-Natriuretic Peptide 379.6 H 11/28/22 15:20: Troponin I High Sens 148 H* 11/29/22 04:21: WBC 5.6, RBC 3.91 L, Hgb 11.7 L, Hct 35.2 L, MCV 90.0, MCH 29.9, MCHC 33.2, RDW Std Deviation 41.7, RDW Coeff of Mik 12.8, Plt Count 111 L, MPV 12.6 H, Immature Gran % (Auto) 0.200, Neut % (Auto) 62.1, Lymph % (Auto) 26.5, [place] % (Auto) 9.2, Eos % (Auto) 1.3, Baso % (Auto) 0.7, Absolute Neuts (auto) 3.5, Absolute Lymphs (auto) 1.47, Nucleated RBC % 0 11/29/22 04:21: Sodium 139, Potassium 3.8, Chloride 111 H, Carbon Dioxide 24.0, Anion Gap 4 L, BUN 15, Creatinine 0.52 L, Estim Creat Clear Calc 46.39, Est GFR (MDRD) Af Amer 153, Est GFR (MDRD) Non-Af 126, BUN/Creatinine Ratio 29.1 H, Glucose 89, Calcium 8.2 L, Total Bilirubin 0.50, AST 14 L, ALT 17, Alkaline Phosphatase 54, Total Protein 5.6 L, Albumin 3.0 L, Globulin 2.6, Albumin/Globulin Ratio 1.2, Triglycerides 57, Cholesterol 155, LDL Cholesterol 85, VLDL Cholesterol 11, HDL Cholesterol 59, TSH 1.58 Radiography Diagnostic Testing: Radiology Impression Chest X-Ray 11/28/22 13:30 IMPRESSION: Hyperinflation. The lungs are clear. Electronically Signed: True Rodríguez MD at 13:53 EDT , Echocardiogram 11/28/22 16:45 Interpretation Summary The estimated ejection fraction is 55-60 %. Peak aortic valve gradient 167.6 mmhg mmHg. Mean aortic valve gradient 97.9 mmhg mmHg. Calculated aortic valve area (continuity equation) is 0.38 cm2 cm2. Critical Calcific AV stenosis No prior study to compare contrast echo and Buble study used Ordering Physician: Chencho Griffith Performed By: Bolivar Ernst, [facility] Meaningful Use Info Meaningful Use Diagnoses (Choose all that apply): None applicable Discharge Plan Admission Admit Date/Time: 11/28/22 14:34 Attending Provider: Chencho Griffith Primary Care Provider: Care Physician,No Primary Consulting Providers: Deondre Chadwick Discharge Orders/Prescriptions Prescriptions: No Action NK Referrals / Follow Up: Care Physician,No Primary [Primary Care Provider] - NOT,DEFINED [Non-Staff] - Disposition Disposition (needs filled in before D/C Order can be placed): Acute Care Hospital Charges/Coding Visit Charges Inpatient E&M: 86723 Disch Hosp >30min
--- NOTE | 2022-11-29 16:21 | NURSING ---
Report called to nurse Baljit for pt to be tx to [facility]
== END 2022-11-29 18:53 | disposition short-term general hospital (02) | DRG 287 ==
LOC: ED 14:41 → PCU 14:57
PROVIDERS: Admitting Provider Internal Medicine; Emergency Provider Emergency Medicine; Visit Provider Internal Medicine
DX: I35.0 Nonrheumatic aortic (valve) stenosis (principal); D69.6 Thrombocytopenia, unspecified; I95.89 Other hypotension; Z66 Do not resuscitate; R77.8 Other specified abnormalities of plasma proteins; R06.02 Shortness of breath; R73.9 Hyperglycemia, unspecified
CPT/HCPCS: 36415; 71045; 80048; 80053; 80061; 83735; 83880; 84443; 84484; 85025; 93005; 93306; 93454; 99152; 99153; 99252; 99285; J7030; J7040; J7120; Q9957; A4216; C1769; C1894; C8929; G0463; Q9967